=== PATIENT | female | born 1970 | race Caucasian/White ===

== ENCOUNTER 2021-10-22 16:58 | Emergency (ER) | payer OTHER ==
--- OUTSIDE RECORDS SUMMARY | 2021-10-22 17:02 | XMS REPORT | Continuity of Care Document ---
:1970 Author Organization [facility] t Address [address] [place] [address] Care Team Providers Name Role Phone Unavailable Unavailable Unavailable Payers Payer Name Policy Type Policy Number Effective Date Expiration Date S ource Problems This patient has no known problems. Allergies, Adverse Reactions, Alerts Allergy Allergy Status Severity Reaction(s) Onset Inactive Treating Comm ents Source Name Type Date Date Clinician No Known DA Active U 2020-0 [facility] Allergie 10-29 [facility] s 00:00: d 00 [facility] No Known DA Active U 2020-0 [facility] Allergie 10-29 [facility] s 00:00: d 00 [facility] Medications This patient has no known medications. Procedures This patient has no known procedures. Encounters Start End Encounter Admission Attending Care Care Encounter Source Date/Time Date/Time Type Type Clinicians Facility Department ID 2019-10-30 Inpatient [facility] [id number] [facility] 02:36:00 [id number] [facility] Results Test Description Test Time Test Comments Results Result [facility] e Comments - CT HEAD/BRAIN 2019-10-30 Name: KAREN FINN W/O CONT 03:33:00 Formerly [facility] : 1970 Age/S: 49 / F [id number] Unit #: [id number] Loc: [place] [address] Phys: Mike Bauman-Dillan DO Acct: [id number] Dis Date: Status: REG ER PHONE #: [phone] Exam Date: 10/30/2019 0310 FAX #: Reason: head trauma EXAMS: CPT: [id number] CT HEAD/BRAIN W/O CONT 90498 Exam: CT of the brain without contrast. History: Facial injury, Technique: Contiguous axial CT images were obtained from the skull base through the vertex without contrast. One or more of the following dose reduction techniques were used: Automated exposure control, adjustment of the mA and/or kV according to patient size, and/or utilization of iterative reconstruction technique. Comparison: 1 Location: R16 Findings: The ventricles and sulci are normal in size and symmetric. The basal cisterns are patent. There is no mass effect or midline shift. There is no acute intracranial hemorrhage. There are no extra-axial fluid collections. There are mild periventricular and subcortical white matter hypodensities which are nonspecific, but likely the sequelae of chronic microvascular ischemia Impression: No CT evidence of an acute intracranial hemorrhage or significant mass effect Additional findings as detailed above CT OF THE FACIAL BONES WITHOUT CONTRAST CLINICAL HISTORY: Trauma TECHNIQUE: Contiguous axial images of the facial bones were obtained. Sagittal and coronal reformats were provided. COMPARISONS: There are no prior similar studies available for comparison. FINDINGS: No definite evidence of facial bone fracture or dislocation is visualized. No evidence of retrobulbar hematoma is seen. The paranasal sinuses and mastoid air cells are clear. There is PAGE 1 Signed Report (CONTINUED) Name: KAREN FINN [place] : 1970 Age/S: 49 / F [id number] Unit #: [id number] Loc: [place] [address] Phys: Mike Bauman DO Acct: [id number] Dis Date: Status: REG ER PHONE #: [phone] Exam Date: 10/30/2019 0310 FAX #: Reason: head trauma EXAMS: CPT: [id number] CT HEAD/BRAIN W/O CONT 54120 <Continued> irregularity of the left lobe which may be artifactual/represent ing a combination motion artifact and postsurgical change, recommend correlation with physical exam/ophthalmology examination. IMPRESSION: No definite evidence of facial bone fracture or dislocation is visualized. No evidence of retrobulbar hematoma is seen. The paranasal sinuses and mastoid air cells are clear. There is irregularity of the left lobe which may be artifactual/represent ing combination motion artifact and postsurgical change, recommend correlation with physical exam/ophthalmology examination.. at 0333 Reported and signed by: Lupe Velazquez M.D. CC: Mike Bauman DO Technologist:Kelsey Grace, RT(R)(CT); CTDI: DLP: Trnscb Date/Time: 10/30/2019 (332) [email or web address] Orig Print D/T: S: 10/30/2019 (0336) PAGE 2 Signed Report - CT MAXIFAC W/O 2019-10-30 Name: KAREN FINN CONTRAST 03:33:00 Formerly [facility] : 1970 Age/S: 49 / F [id number] Unit #: [id number] Loc: [place] [address] Phys: Mike Bauman DO Acct: [id number] Dis Date: Status: REG ER PHONE #: [phone] Exam Date: 10/30/2019 0315 FAX #: Reason: facial injury EXAMS: CPT: [id number] CT MAXIFAC W/O CONTRAST 33494 Exam: CT of the brain without contrast. History: Facial injury, Technique: Contiguous axial CT images were obtained from the skull base through the vertex without contrast. One or more of the following dose reduction techniques were used: Automated exposure control, adjustment of the mA and/or kV according to patient size, and/or utilization of iterative reconstruction technique. Comparison: 1 Location: R16 Findings: The ventricles and sulci are normal in size and symmetric. The basal cisterns are patent. There is no mass effect or midline shift. There is no acute intracranial hemorrhage. There are no extra-axial fluid collections. There are mild periventricular and subcortical white matter hypodensities which are nonspecific, but likely the sequelae of chronic microvascular ischemia Impression: No CT evidence of an acute intracranial hemorrhage or significant mass effect Additional findings as detailed above CT OF THE FACIAL BONES WITHOUT CONTRAST CLINICAL HISTORY: Trauma TECHNIQUE: Contiguous axial images of the facial bones were obtained. Sagittal and coronal reformats were provided. COMPARISONS: There are no prior similar studies available for comparison. FINDINGS: No definite evidence of facial bone fracture or dislocation is visualized. No evidence of retrobulbar hematoma is seen. The paranasal sinuses and mastoid air cells are clear. There is PAGE 1 Signed Report (CONTINUED) Name: KAREN FINN Formerly [facility] : 1970 Age/S: 49 / F [id number] Unit #: [id number] Loc: [place] [address] Phys: Mike Bauman DO Acct: [id number] Dis Date: Status: REG ER PHONE #: [phone] Exam Date: 10/30/2019 0315 FAX #: Reason: facial injury EXAMS: CPT: [id number] CT MAXIFAC W/O CONTRAST 25716 <Continued> irregularity of the left lobe which may be artifactual/represent ing a combination motion artifact and postsurgical change, recommend correlation with physical exam/ophthalmology examination. IMPRESSION: No definite evidence of facial bone fracture or dislocation is visualized. No evidence of retrobulbar hematoma is seen. The paranasal sinuses and mastoid air cells are clear. There is irregularity of the left lobe which may be artifactual/represent ing combination motion artifact and postsurgical change, recommend correlation with physical exam/ophthalmology examination.. at 0333 Reported and signed by: Lupe Velazquez M.D. CC: Mike Bauman DO Technologist:Kelsey Grace, RT(R)(CT); CTDI: DLP: Trnscb Date/Time: 10/30/2019 (332) [email or web address] Orig Print D/T: S: 10/30/2019 (033) PAGE 2 Signed Report - XR KNEE 3 V RT 2019-10-30 Name: KAREN FINN 03:23:00 [facility]ly [facility] : 1970 Age/S: 49 / F [address] Unit #: [id number] Loc: [place] [address] Phys: Mike Bauman DO Acct: [id number] Dis Date: Status: REG ER PHONE #: [phone] Exam Date: 10/30/2019 0320 FAX #: Reason: R knee pain EXAMS: CPT: [id number] XR KNEE 3 [place] [address] Fluoro Time: DAP (Gy m2): Air Kerma (mGy): EXAM: - XR KNEE 3 V RT LOCATION: H57 HISTORY: 49 years-year old Female with R knee pain COMPARISON: None available time of interpretation. FINDINGS: Frontal, oblique, and lateral views of the right knee are provided. No acute fracture or malalignment. No significant knee joint effusion. No soft tissue findings are apparent. There is peaking of the tibial spines. IMPRESSION: No acute fracture. at 0323 Reported and signed by: Ian Villa M.D. CC: Mike Bauman DO PAGE 1 Signed Report Name: KAREN FINN [place] : 1970 Age/S: 49 / F [address] Unit #: [id number] Loc: [place] [address] Phys: Mike BaumanDillan Acct: [id number] Dis Date: Status: REG ER PHONE #: [phone] Exam Date: 10/30/2019 032 FAX #: Reason: R knee pain EXAMS: CPT: [id number] XR KNEE 3 V RT [address] Fluoro Time: DAP (Gy m2): Air Kerma (mGy): <Continued> Technologist: Kelsey Grace, RT(R)(CT); ... Trnscb Date/Time: 10/30/2019 (322) [email or web address] Orig Print D/T: S: 10/30/2019 (325) PAGE 2 Signed Report CR - XRAY KNEE XR 2017-12-03 CLINICAL INDICATION: 3 VIEWS LT 16:16:37 M25.562 Pain in left kneeFINDINGS:COMPARIS ON: NoneThe joint spaces are well maintained . There are no significant marginal osteophytes.There are no intra-articular abnormalities.There are no fractures or destructive lesions.Soft tissues are normal.IMPRESSION:Unr emarkable x-ray of the left knee. CR - XRAY KNEE XR CLINICAL INDICATION: 3 VIEWS LT M25.562 Pain in left kneeFINDINGS:COMPARIS ON: NoneThe joint spaces are well maintained . There are no significant marginal osteophytes.There are no intra-articular abnormalities.There are no fractures or destructive lesions.There are no joint effusions. There may be mildly prominent venous varicosities in the medial proximal thigh.IMPRESSION:Nega tive three-view radiographic evaluation of the left knee. CR - XRAY KNEE XR CLINICAL INDICATION: 3 VIEWS RT M25.561 Pain in right kneeFINDINGS:COMPARIS ON: NoneThe joint spaces are well maintained . There are no significant marginal osteophytes.There are no intra-articular abnormalities.There are no fractures or destructive lesions.Soft tissues are normal.IMPRESSION:Neg ative radiographic evaluation of the right knee.
[2021-10-22] MEDS ORDERED: DOXYCYCLINE 100 MG CAP PO ONE (18:54)
[2021-10-22] MEDS ORDERED: NA CHLORIDE 0.9% 1,000 ML ONE (18:54)
[2021-10-22 19:02] LABS: Urine Blood Negative (Negative); Urine Glucose Negative (Negative); Urine Protein Negative (Negative); Urine pH 6.5 (5.0-7.0)
[2021-10-22 19:05] LABS: Absolute Lymphocytes (CBC) 2.1 K/uL (0.7-4.9); Hematocrit 45.4 % (36.0-45.0); Lymphocytes % 22.1 % (15.3-44.8); MPV 8.1 fL (7.6-11.3); RBC Red Blood Cell Count 5.41 M/uL (3.86-4.86)
[2021-10-22 19:16] LABS: Protime INR 0.88
[2021-10-22 19:24] LABS: ALT/SGPT 21 U/L (12-78); AST/SGOT 9 U/L (15-37); Albumin 3.8 g/dL (3.4-5.0); Alkaline Phosphatase 84 U/L (45-117); BUN Blood Urea Nitrogen 11 mg/dL (7-18); Bicarbonate 30 mmol/L (21-32); Bilirubin Direct < 0.1 mg/dL (0-0.2); Bilirubin Total 0.2 mg/dL (0.2-1.0); Glomerular Filtration Rate 82 ml/min (=/>90); Glucose Level 86 mg/dL (74-106); Potassium 3.7 mmol/L (3.5-5.1); Protein, Total 7.2 g/dL (6.4-8.2); Sodium Level 140 mmol/L (136-145)
[2021-10-22 19:24] LABS: Barbiturates NEGATIVE (NEGATIVE); Benzodiazepines NEGATIVE (NEGATIVE); Cocaine NEGATIVE (NEGATIVE); METHAMPHETAM NEGATIVE (NEGATIVE); Methadone NEGATIVE (NEGATIVE); Opiates NEGATIVE (NEGATIVE); Phencyclidine NEGATIVE (NEGATIVE); THC Cannibis POSITIVE (NEGATIVE)
--- NOTE | 2021-10-22 19:31 | RAD REPORT ---
EXAM DESCRIPTION: CT - Head Brain Wo Cont - 10/22/2021 7:24 pm CLINICAL HISTORY: Seizure, new-onset, no history of trauma Headache, drowsiness, seizure COMPARISON: No comparisons TECHNIQUE: All CT scans are performed using dose optimization technique as appropriate and may inclu de automated exposure control or mA/KV adjustment according to patient size. FINDINGS: No intracranial hemorrhage, hydrocephalus or extra-axial fluid collection.No areas of brai n edema or evidence of midline shift. The paranasal sinuses and mastoids are clear. The calvarium is intact. IMPRESSION: No acute intracranial abnormality.
--- NOTE | 2021-10-22 19:35 | EDPHYS ---
Physician Documentation [facility] Name: Jennifer Askew Age: 51 yrs Sex: Female : 1970 Arrival Date: 10/22/2021 Time: 17:01 Bed 19 Private MD: ED Physician Anupam Mera HPI: 10/22 18:40 This 51 yrs old Female presents to ER via Ambulatory with complaints of Skin shukri Problem. 18:40 The patient's rash thought to be caused by Dermatitis an unknown cause. The rash is shukri located on the body diffusely. The rash can be described as erythematous. Onset: The symptoms/episode began/occurred 10 day(s) ago. Associated signs and symptoms: Pertinent positives: itching, Pain. Severity of symptoms: At their worst the symptoms were mild in the emergency department the symptoms are unchanged. 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 Treatment given at home: SOAPS. Historical: - Allergies: 17:30 No Known Allergies; iw - Home Meds: 17:31 Mccoy Oral [Active]; Seroquel Oral [Active]; Lamictal Oral [Active]; Klonopin Oral iw [Active]; - PMHx: 17:31 Bipolar disorder; Fibromyalgia; trigeminal neuralgia; iw - Immunization history:: Adult Immunizations. - Social history:: Smoking status: Patient reports the use of cigarette tobacco products, smokes one-half pack cigarettes per day, Reported history of juuling and/or vaping. - Family history:: not pertinent. ROS: 18:40 Constitutional: Negative for fever, chills, and weight loss, Eyes: Negative for injury, shukri pain, redness, and discharge, ENT: Negative for injury, pain, and discharge, Neck: Negative for injury, pain, and swelling, Cardiovascular: Negative for chest pain, palpitations, and edema, Respiratory: Negative for shortness of breath, cough, wheezing, and pleuritic chest pain, Abdomen/GI: Negative for abdominal pain, nausea, vomiting, diarrhea, and constipation, Back: Negative for injury and pain, : Negative for injury, bleeding, discharge, and swelling, Neuro: Negative for headache, weakness, numbness, tingling, and seizure, Psych: Negative for depression, anxiety, suicide ideation, homicidal ideation, and hallucinations, Allergy/Immunology: Negative for hives, rash, and allergies, Endocrine: Negative for neck swelling, polydipsia, polyuria, polyphagia, and marked weight changes, Hematologic/Lymphatic: Negative for swollen nodes, abnormal bleeding, and unusual bruising. 18:40 MS/extremity: Positive for erythema, pain, swelling, tenderness, of the right arm, left arm, right leg and left leg. Exam: 18:40 Constitutional: This is a well developed, well nourished patient who is awake, alert, shukri and in no acute distress. Head/Face: Normocephalic, atraumatic. Eyes: Pupils equal round and reactive to light, extra-ocular motions intact. Lids and lashes normal. Conjunctiva and sclera are non-icteric and not injected. Cornea within normal limits. Periorbital areas with no swelling, redness, or edema. ENT: Nares patent. No nasal discharge, no septal abnormalities noted. Tympanic membranes are normal and external auditory canals are clear. Oropharynx with no redness, swelling, or masses, exudates, or evidence of obstruction, uvula midline. Mucous membranes moist. Neck: Trachea midline, no thyromegaly or masses palpated, and no cervical lymphadenopathy. Supple, full range of motion without nuchal rigidity, or vertebral point tenderness. No Meningismus. Chest/axilla: Normal chest wall appearance and motion. Nontender with no deformity. No lesions are appreciated. Cardiovascular: Regular rate and rhythm with a normal S1 and S2. No gallops, murmurs, or rubs. Normal PMI, no JVD. No pulse deficits. Respiratory: Lungs have equal breath sounds bilaterally, clear to auscultation and percussion. No rales, rhonchi or wheezes noted. No increased work of breathing, no retractions or nasal flaring. Abdomen/GI: Soft, non-tender, with normal bowel sounds. No distension or tympany. No guarding or rebound. No evidence of tenderness throughout. Back: No spinal tenderness. No costovertebral tenderness. Full range of motion. MS/ Extremity: Pulses equal, no cyanosis. Neurovascular intact. Full, normal range of motion. Neuro: Awake and alert, GCS 15, oriented to person, place, time, and situation. Cranial nerves II-XII grossly intact. Motor strength 5/5 in all extremities. Sensory grossly intact. Cerebellar exam normal. Normal gait. Psych: Awake, alert, with orientation to person, place and time. Behavior, mood, and affect are within normal limits. 18:40 Skin: lesion(s), noted, and can be described as erythematous, tender. 18:58 ECG was reviewed by the Attending Physician. [facility] Vital Signs: 17:27 BP 142 / 99; Pulse 115; Resp 16; Temp 97.9; Pulse Ox 99% on R/A; iw 19:44 BP 132 / 87; Pulse 95; Resp 17; Pulse Ox 100% on R/A; sm5 MDM: 18:20 Patient medically screened. shukri 18:52 Differential diagnosis: impetigo, varicella, allergic reaction, parasite infection. [facility] Data reviewed: vital signs, nurses notes, lab test result(s), EKG, radiologic studies, CT scan. 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 Test interpretation: by ED physician or midlevel provider: ECG. Counseling: I had a detailed discussion with the patient and/or guardian regarding: the historical points, exam findings, and any diagnostic results supporting the discharge/admit diagnosis, lab results, radiology results. 10/22 18:39 Order name: Acetaminophen; Complete Time: 19:33 [facility] 10/22 18:39 Order name: Basic Metabolic Panel; Complete Time: 19:33 [facility] 10/22 18:39 Order name: CBC with Diff; Complete Time: 19:21 [facility] 10/22 18:39 Order name: ETOH Level; Complete Time: 19:21 [facility] 10/22 18:39 Order name: Hepatic Function; Complete Time: 19:33 [facility] 10/22 18:39 Order name: PT-INR; Complete Time: 19:21 [facility] 10/22 18:39 Order name: Ptt, Activated; Complete Time: 19:21 [facility] 10/22 18:39 Order name: Salicylate; Complete Time: 19:33 [facility] 10/22 18:39 Order name: Urine Drug Screen; Complete Time: 19:24 [facility] 10/22 18:39 Order name: CT Head Brain wo Cont; Complete Time: 19:33 [facility] 10/22 19:02 Order name: Urine Dipstick-Ancillary; Complete Time: 19:05 EDMS 10/22 19:10 Order name: Urine --Ancillary (enter results) 10/22 19:13 Order name: Urine --Ancillary; Complete Time: 19:21 EDMS 10/22 18:39 Order name: EKG; Complete Time: 18:40 [facility] 10/22 18:39 Order name: EKG - Nurse/Tech; Complete Time: 18:56 [facility] 10/22 18:39 Order name: IV Saline Lock; Complete Time: 18:56 [facility] 10/22 18:39 Order name: Labs collected and sent; Complete Time: 18:56 [facility] 10/22 18:39 Order name: Urine Dipstick-Ancillary (obtain specimen); Complete Time: 18:56 [facility] 10/22 18:39 Order name: Urine Test (obtain specimen); Complete Time: 18:56 [facility] 10/22 18:39 Order name: Seizure Precautions; Complete Time: 19:17 [facility] EC:58 Rate is 72 beats/min. Rhythm is regular. QRS [place]on is Normal. DE interval is normal. QRS shukri interval is normal. QT interval is normal. No Q waves. T waves are Normal. No ST changes noted. Clinical impression: Normal ECG and No evidence of ischemia. Interpreted by me. Reviewed by me. Administered Medications: 18:55 Drug: NS 0.9% 1000 ml Route: IV; Rate: 1 bolus; Site: right antecubital; kern 19:45 Follow up: IV Status: Completed infusion; IV Intake: 1000ml [facility] 18:55 Drug: Doxycycline 200 mg Route: PO; kern 19:45 Follow up: Response: No adverse reaction [facility] Disposition Summary: 10/22/21 19:34 Discharge Ordered Location: Home shukri Problem: new shukri Symptoms: have improved shukri Condition: Stable shukri Diagnosis - Dermatitis, unspecified shukri Followup: shukri - With: Private Physician - When: 2 - 3 days - Reason: Recheck today's complaints, Continuance of care, Re-evaluation by your physician Discharge Instructions: - Discharge Summary Sheet shukri - Rash, Adult shukri - Rash, Adult, [id number] [facility] Forms: - Medication Reconciliation Form [facility] - Thank You Letter [facility] - Antibiotic Education shukri - Prescription Opioid Use [facility] Prescriptions: - Benadryl 25 mg Oral Capsule - take 1 capsule by ORAL route every 6 hours As needed; 30 tablet; Refills: 0, shukri Product Selection Permitted - Pepcid 20 mg Oral Tablet - take 1 tablet by ORAL route every 12 hours for 30 days; 60 tablet; Refills: 0, shukri Product Selection Permitted - Doxycycline Hyclate 100 mg Oral Tablet - take 1 tablet by ORAL route every 12 hours; 20 tablet; Refills: 0, Product shukri Selection Permitted - Hydrocortisone 0.5 % Topical Cream - apply 1 application by TOPICAL route every 12 hours As needed; 60 gram; shukri Refills: 0, Product Selection Permitted Signatures: Dispatcher [employer] Anupam Yang MD MD cha Williams, Irene, RN RN iw Au-Tara Handy RN RN ha Mazur, Sarah RN sm5
--- NOTE | 2021-10-22 19:35 | ER ---
Nurse's Notes 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 Coronavirus screen: At this time, the client does not indicate any symptoms associated with coronavirus-19. Ebola Screen: Patient negative for fever greater than or equal to 101.5 degrees Fahrenheit, and additional compatible Ebola Virus Disease symptoms Patient denies exposure to infectious person. Patient denies travel to an Ebola-affected area in the 21 days before illness onset. No symptoms or risks identified at this time. Initial Sepsis Screen: Does the patient meet any 2 criteria? No. Patient's initial sepsis screen is negative. Does the patient have a suspected source of infection? No. Patient's initial sepsis screen is negative. Risk Assessment: Do you want to hurt yourself or someone else? Patient reports no desire to harm self or others. 17:27 Method Of Arrival: Ambulatory iw 17:27 Acuity: PITO 3 iw 19:44 Onset of symptoms was October 22, 2021. 5 Triage Assessment: 18:34 General: Appears in no apparent distress. Behavior is cooperative, anxious. kern Historical: - Allergies: 17:30 No Known Allergies; iw - Home Meds: 17:31 [place] Oral [Active]; Seroquel Oral [Active]; Lamictal Oral [Active]; Klonopin Oral iw [Active]; - PMHx: 17:31 Bipolar disorder; Fibromyalgia; trigeminal neuralgia; iw - Immunization history:: Adult Immunizations. - Social history:: Smoking status: Patient reports the use of cigarette tobacco products, smokes one-half pack cigarettes per day, Reported history of juuling and/or vaping. - Family history:: not pertinent. Screenin:33 Abuse screen: Denies threats or abuse. Denies injuries from another. Nutritional kern screening: No deficits noted. Tuberculosis screening: No symptoms or risk factors identified. Fall Risk None identified. Assessment: 18:29 Pain: Complains of pain in generlized. kern 18:32 Derm: Skin is red, Rash noted that is generalized warts/bumps Reports burning, itching, kern pain tingling. 19:43 General: Behavior is cooperative. Neuro: Level of Consciousness is awake, alert, obeys sm5 commands. Cardiovascular: Capillary refill < 3 seconds Patient's skin is warm and dry. Respiratory: Airway is patent Trachea midline Respiratory effort is even, unlabored. Derm: Rash noted that is raised, on left leg and right leg and left arm and right arm. Vital Signs: 17:27 BP 142 / 99; Pulse 115; Resp 16; Temp 97.9; Pulse Ox 99% on R/A; iw 19:44 BP 132 / 87; Pulse 95; Resp 17; Pulse Ox 100% on R/A; sm5 ED Course: 17:01 Patient arrived in ED. am2 17:30 Triage completed. iw 17:31 Arm band placed on. iw 18:12 Tara Brito, RN is Primary Nurse. kern 18:20 Anupam Mera MD is Attending Physician. shukri 18:33 Patient has correct armband on for positive identification. Bed in low position. kern 18:33 No provider procedures requiring assistance completed. kern 19:03 Urine collected: clean catch specimen, clear, Legal drug screen obtained per protocol. jw7 19:17 Urine --Ancillary (enter results) Sent. sm5 19:26 CT Head Brain wo Cont In Process Unspecified. EDMS 19:44 IV discontinued, intact, bleeding controlled, No redness/swelling at site. Pressure sm5 dressing applied. Administered Medications: 18:55 Drug: NS 0.9% 1000 ml Route: IV; Rate: 1 bolus; Site: right antecubital; kern 19:45 Follow up: IV Status: Completed infusion; IV Intake: 1000ml sm5 18:55 Drug: Doxycycline 200 mg Route: PO; kern 19:45 Follow up: Response: No adverse reaction sm5 Medication: 18:34 VIS not applicable for this client. kern Intake: 19:45 IV: 1000ml; Total: 1000ml. sm5 Outcome: 19:34 Discharge ordered by . shukri 19:44 Discharged to home [facility] 19:44 Condition: stable 19:44 Discharge instructions given to patient, Instructed on discharge instructions, follow up and referral plans. medication usage, Demonstrated understanding of instructions, follow-up care, medications, Prescriptions given X 4. 19:45 Patient left the ED. 5 Signatures: Dispatcher [employer] EDMS Anupam Mera MD MD cha Williams, Irene, RN RN Selam Antonio Sarah, RN RN 5 Au-StagerTara RN Jess Villagran 7 Corrections: (The following items were deleted from the chart) 17:33 17:27 BP 142 / 99; Pulse 122bpm; Resp 16bpm; Pulse Ox 99% RA; Temp 97.9F; iw
[2021-10-22 20:34] VITALS: TEMP 97.9
[2021-10-22 20:36] VITALS: BP 132/87; O2SAT 100
--- NOTE | 2021-10-23 07:54 | EKG ---
Test Date: 2021-10-22 Test Time: 18:56:31 Spool Tender: MARIA A MEASUREMENT RESULTS: Intervals: Rate: 72 UT: 168 QRSD: 90 QT: 364 QTc: 398 [place]: P: 55 UT: 168 QRS: 37 T: 49 INTERPRETIVE STATEMENTS: Normal sinus rhythm Normal ECG No previous ECG available for comparison Electronically Signed On 10-23-21 07:52:30 CDT by Ryder Peralta
== END 2021-10-22 19:45 | disposition home or self-care (01) ==
LOC: ER 16:58
DX: L30.9 Dermatitis, unspecified (principal); F31.9 Bipolar disorder, unspecified; F17.210 Nicotine dependence, cigarettes, uncomplicated
CPT/HCPCS: 93005; 85025; 80048; 36415; 80320; 80329 ×2; 81025; 85610; 80076; 85730; 81003; 80307; 70450; 96360; 99284; J7030

== ENCOUNTER 2021-10-27 16:23 | Emergency (ER) | payer OTHER ==
--- OUTSIDE RECORDS SUMMARY | 2021-10-27 16:26 | XMS REPORT | Continuity of Care Document ---
:1970 Author Organization [facility] t Address [address] [place] [address] Care Team Providers Name Role Phone Unavailable Unavailable Unavailable Payers Payer Name Policy Type Policy Number Effective Date Expiration Date S ource Problems This patient has no known problems. Allergies, Adverse Reactions, Alerts Allergy Allergy Status Severity Reaction(s) Onset Inactive Treating Comm ents Source Name Type Date Date Clinician No Known DA Active U 2020-0 [facility] Allerg 10-29 [facility] s 00:00: d 00 [facility] No Known DA Active U 2020-0 [facility] Allerg 10-29 [facility] s 00:00: d 00 [facility] Medications This patient has no known medications. Procedures This patient has no known procedures. Encounters Start End Encounter Admission Attending Care Care Encounter Source Date/Time Date/Time Type Type Clinicians Facility Department ID 2019-10-[address] [facility] [id number] [facility] 02:36:00 [id number] [facility] Results Test Description Test Time Test Comments Results Result [facility] e Comments - CT HEAD/BRAIN 2019-10-30 Name: KAREN FINN W/O CONT 03:33:00 [facility] : 1970 Age/S: 49 / F [id number] Unit #: [id number] Loc: [place] [address] Phys: Mike Bauman-Dillan DO Acct: [id number] Dis Date: Status: REG ER PHONE #: [phone] Exam Date: 10/30/2019 0310 FAX #: Reason: head trauma EXAMS: CPT: [id number] CT HEAD/BRAIN W/O CONT 11223 Exam: CT of the brain without contrast. [...] 1 Signed Report (CONTINUED) Name: KAREN FINN [place] : 1970 Age/S: 49 / F [id number] Unit #: [id number] Loc: [place] [address] Phys: Mike Bauman DO Acct: [id number] Dis Date: Status: REG ER PHONE #: [phone] Exam Date: 10/30/2019 0310 FAX #: Reason: head trauma EXAMS: CPT: [id number] CT HEAD/BRAIN W/O CONT 63194 <Continued> irregularity of the left lobe which [...] Grace, RT(R)(CT); CTDI: DLP: Trnscb Date/Time: 10/30/2019 (033) [email or web address] Orig Print D/T: S: 10/30/2019 (033) PAGE 2 Signed Report - CT MAXIFAC W/O 2019-10-30 Name: KAREN FINN CONTRAST 03:33:00 [facility] [place] : 1970 Age/S: 49 / F [id number] Unit #: [id number] Loc: [place] [address] Phys: Mike Bauman DO Acct: [id number] Dis Date: Status: REG ER PHONE #: [phone] Exam Date: 10/30/2019314 FAX #: Reason: facial injury EXAMS: CPT: [id number] CT MAXIFAC W/O CONTRAST 99419 Exam: CT of the brain without contrast. [...] 1 Signed Report (CONTINUED) Name: KAREN FINN [place] : 1970 Age/S: 49 / F [id number] Unit #: [id number] Loc: [place] [address] Phys: Mike Bauman DO Acct: [id number] Dis Date: Status: REG ER PHONE #: [phone] Exam Date: 10/30/2019 0315 FAX #: Reason: facial injury EXAMS: CPT: [id number] CT MAXIFAC W/O CONTRAST 325[address] <Continued> irregularity of the left lobe which [...] Grace, RT(R)(CT); CTDI: DLP: Trnscb Date/Time: 10/30/2019 (0333) [email or web address] Orig Print D/T: S: 10/30/2019 (0336) PAGE 2 Signed Report - XR KNEE 3 V RT 2019-10-30 Name: KAREN FINN 03:23:00 [facility] [place] : 1970 Age/S: 49 / F [address] Unit #: [id number] Loc: [place] [address] Phys: Mike Bauman DO Acct: [id number] Dis Date: Status: REG ER PHONE #: [phone] Exam Date: 10/30/2019 0320 FAX #: Reason: R knee pain EXAMS: CPT: [id number] XR KNEE 3 V RT [address]19 Fluoro Time: DAP (Gy m2): Air Kerma [...] PAGE 1 Signed Report Name: KAREN FINN [place] : 1970 Age/S: 49 / F [id number] [address] Unit #: [id number] Loc: [place] [address] Phys: Mike Bauman DO Acct: [id number] Dis Date: Status: REG ER PHONE #: [phone] Exam Date: 10/30/2019319 FAX #: Reason: R knee pain EXAMS: CPT: [id number] XR KNEE 3 V RT [address] Fluoro Time: DAP (Gy m2): Air Kerma [...]
--- NOTE | 2021-10-27 19:28 | ER ---
Nurse's Notes [facility] Name: Jennifer Askew Age: 51 yrs Sex: Female : 1970 Arrival Date: 10/27/2021 Time: 16:25 Bed External Waiting Private MD: Diagnosis: Encounter for screening, unspecified Presentation: 10/27 17:46 Chief complaint: Patient states: Pt reports she was seen in this ED 3 days ago for kb3 sores all over her body and "things crawling out of her skin." States she is taking doxycycline x3 days but "the lesions are worse and there are more things crawling around on her skin. Coronavirus screen: Vaccine status: Patient reports receiving the 2nd dose of the covid vaccine. Client denies travel out of the [place] in the last 14 days. Ebola Screen: Patient negative for fever greater than or equal to 101.5 degrees Fahrenheit, and additional compatible Ebola Virus Disease symptoms Patient denies exposure to infectious person. Patient denies travel to an Ebola-affected area in the 21 days before illness onset. Initial Sepsis Screen: Does the patient meet any 2 criteria? No. Patient's initial sepsis screen is negative. Does the patient have a suspected source of infection? No. Patient's initial sepsis screen is negative. Risk Assessment: Do you want to hurt yourself or someone else? Patient reports no desire to harm self or others. Onset of symptoms was October 06, 2021. 17:46 Method Of Arrival: Ambulatory kb3 17:46 Acuity: PITO 4 kb3 Triage Assessment: 17:50 General: Appears slender, unkempt, Behavior is cooperative, anxious, Bizarre. Pain: kb3 Complains of pain in head, chest, abdomen, pelvis, right arm, left arm, right leg, left leg, back of head, back of left arm, back of right arm, posterior chest, buttocks, back of left leg, back of right leg and back Pain does not radiate. Pain currently is 8 out of 10 on a pain scale. Quality of pain is described as burning, Pain began 3 weeks ago Is continuous. GI: Reports nausea. 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 Last tetanus immunization: unknown. - Social history:: Smoking status: Patient reports the use of cigarette tobacco products, smokes one-half pack cigarettes per day, Patient uses street drugs, marijuana, Patient/guardian denies using alcohol. Screenin:38 Abuse screen: Denies threats or abuse. Denies injuries from another. Nutritional ss screening: No deficits noted. Tuberculosis screening: Never had TB. Fall Risk None identified. Assessment: 18:38 General: Appears in no apparent distress. Neuro: Level of Consciousness is awake, ss alert, obeys commands. Cardiovascular: Capillary refill < 3 seconds is sluggish in bilateral fingers. Respiratory: Airway is patent Respiratory effort is even, unlabored, Respiratory pattern is regular, symmetrical. GI: No signs and/or symptoms were reported involving the gastrointestinal system. Derm: Skin is intact, is healthy with good turgor, Skin is dry, Skin is pink, warm \\T\\ dry. normal. Musculoskeletal: Circulation, motion, and sensation intact. Range of motion: intact in all extremities, Swelling absent. 18:38 Derm: Pt states that she has had bugs crawling out of her skin, and was here the other ss day and nothing seems to be helping. No obvious bugs noted on the skin at this time. Vital Signs: 17:46 BP 140 / 87; Pulse 100; Resp 20; Temp 98.1; Pulse Ox 100% ; Weight 68.04 kg; Height 5 kb3 ft. 7 in. (170.18 cm); Pain 10/10; 17:46 Body Mass Index 23.49 (68.04 kg, 170.18 cm) kb3 ED Course: 16:25 Patient arrived in ED. mr 17:13 Orin Fleming FNP-C is [facility]. snw 17:13 Anupam Mera MD is Attending Physician. snw 17:50 Triage completed. kb3 17:50 Arm band placed on left wrist. kb3 18:38 Inez Emery, RN is Primary Nurse. ss 18:38 Patient has correct armband on for positive identification. ss 19:22 No provider procedures requiring assistance completed. Patient did not have IV access ss during this emergency room visit. Administered Medications: No medications were administered Medication: 18:38 VIS not applicable for this client. ss Outcome: 19:22 Discharged to home ambulatory. ss 19:22 Condition: good 19:22 Discharge instructions given to patient, Instructed on discharge instructions, follow up and referral plans. Demonstrated understanding of instructions, follow-up care. 19:27 Discharge ordered by . snw 19:28 Patient left the ED. ss Signatures: Orin Fleming, MANAGER ASSESSMENT-C MANAGER ASSESSMENT-Csnw Caro Napoles mr Inez Emery, RN RN Yolande Solo, RN RN kb3
--- NOTE | 2021-10-27 19:28 | EDPHYS ---
Physician Documentation [facility] Name: Jennifer Askew Age: 51 yrs Sex: Female : 1970 Arrival Date: 10/27/2021 Time: 16:25 Bed External Waiting Private MD: ED Physician Anupam Mera HPI: 10/27 19:03 This 51 yrs old Female presents to ER via Ambulatory with complaints of Skin Problem, snw Nausea. 19:03 Onset: The symptoms/episode began/occurred gradually, 3 week(s) ago. Associated signs snw and symptoms: Pertinent positives: pain. It is unknown whether or not the patient has had similar symptoms in the past. The patient has been recently seen at the [facility] Emergency Department, this week, for similar complaints given doxy. 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 Last tetanus immunization: unknown. - Social history:: Smoking status: Patient reports the use of cigarette tobacco products, smokes one-half pack cigarettes per day, Patient uses street drugs, marijuana, Patient/guardian denies using alcohol. ROS: 19:03 Constitutional: Negative for fever, chills, and weight loss, Eyes: Negative for injury, snw pain, redness, and discharge, ENT: Negative for injury, pain, and discharge, Neck: Negative for injury, pain, and swelling, Cardiovascular: Negative for chest pain, palpitations, and edema, Respiratory: Negative for shortness of breath, cough, wheezing, and pleuritic chest pain, Abdomen/GI: Negative for abdominal pain, nausea, vomiting, diarrhea, and constipation, Back: Negative for injury and pain, : Negative for injury, bleeding, discharge, and swelling. 19:03 MS/extremity: Positive for swelling, of the right lateral posterior chest and left arm. Exam: 19:01 Head/Face: Normocephalic, atraumatic. Eyes: Pupils equal round and reactive to light, snw extra-ocular motions intact. Lids and lashes normal. Conjunctiva and sclera are non-icteric and not injected. Cornea within normal limits. Periorbital areas with no swelling, redness, or edema. 19:01 Chest/axilla: Normal chest wall appearance and motion. Nontender with no deformity. No lesions are appreciated. 19:01 Respiratory: Lungs have equal breath sounds bilaterally, clear to auscultation and percussion. No rales, rhonchi or wheezes noted. No increased work of breathing, no retractions or nasal flaring. Abdomen/GI: Soft, non-tender, with normal bowel sounds. No distension or tympany. No guarding or rebound. No evidence of tenderness throughout. Back: No spinal tenderness. No costovertebral tenderness. Full range of motion. MS/ Extremity: Pulses equal, no cyanosis. Neurovascular intact. Full, normal range of motion. Neuro: Awake and alert, GCS 15, oriented to person, place, time, and situation. Cranial nerves II-XII grossly intact. Motor strength 5/5 in all extremities. Sensory grossly intact. Cerebellar exam normal. Normal gait. 19:01 Constitutional: The patient appears alert, awake, anxious, restless, unkempt. 19:01 ENT: TM's: loss of bony landmarks, that is moderate, on the right, Nose: is normal, Mouth: is normal, Posterior pharynx: is normal. 19:01 Cardiovascular: Rate: tachycardic, Heart sounds: normal. 19:01 Skin: Appearance: tommie, papules, areas of crusted sores. 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 Vital Signs: 17:46 BP 140 / 87; Pulse 100; Resp 20; Temp 98.1; Pulse Ox 100% ; Weight 68.04 kg; Height 5 kb3 ft. 7 in. (170.18 cm); Pain 10/10; 17:46 Body Mass Index 23.49 (68.04 kg, 170.18 cm) kb3 MDM: 18:42 Patient medically screened. [facility] 19:01 Data reviewed: vital signs, nurses notes. Data interpreted: Pulse oximetry: on room air snw is 100 %. Interpretation: normal. Counseling: I had a detailed discussion with the patient and/or guardian regarding: the historical points, exam findings, and any diagnostic results supporting the discharge/admit diagnosis, the need for outpatient follow up. Special discussion: Based on the history and exam findings, there is no indication for further emergent testing or inpatient evaluation. I discussed with the patient/guardian the need to see the primary care provider for further evaluation of the symptoms. Administered Medications: No medications were administered Disposition: 19:00 Pt left ED without papers after assessment. snw Disposition Summary: 10/27/21 19:27 Discharge Ordered Location: Home snw Condition: Stable snw Diagnosis - Encounter for screening, unspecified snw Followup: snw - With: Emergency Department - When: As needed - Reason: Worsening of condition Followup: snw - With: Private Physician - When: Tomorrow - Reason: Recheck today's complaints, Continuance of care, Re-evaluation by your physician Forms: - Medication Reconciliation Form snw - Thank You Letter snw - Antibiotic Education snw - Prescription Opioid Use snw Signatures: Anupam Mera MD MD cha Waters, Shelly, INDUSTRIAL MAINTENANCE REPAIRER HELPER-C INDUSTRIAL MAINTENANCE REPAIRER HELPER-Csnw Yolande Solo, RN RN kb3
[2021-10-27 21:45] VITALS: BP 140/87; TEMP 98.1; O2SAT 100
== END 2021-10-27 19:28 | disposition home or self-care (01) ==
LOC: ER 16:23
DX: R11.0 Nausea (principal); R52 Pain, unspecified; F17.210 Nicotine dependence, cigarettes, uncomplicated; F31.9 Bipolar disorder, unspecified
CPT/HCPCS: 99281